=== PATIENT | male | born 1985 | race Caucasian/White ===

== ENCOUNTER 2017-03-14 06:36 | Observation (INO) | payer SELFPAY ==
[~2017-03-14 06:36] MED LIST: ALLOPURINOL300 M1 PO; FENOFIBRATE; FISH OIL; LEXAPRO10 M2 PO; LIPITOR20 M1 PO; LOVAZA1 GM/CAP PO; PRINIVIL20 M1 PO; TRICOR145 M2 PO
[2017-03-14 07:41] LABS: BASO % 0.5 % (0-2); EOS % 0.7 % (0-7); HCT-HEMATOCRIT 48.8 % (36.0-53.5); HGB-HEMOGLOBIN 17.2 gm/dl (13.5-17.0); LYMPH % 31.1 % (20-45); LYMPH ABSOLUTE COUNT 1.3 tho/cmm (0.8-4.5); MCH (MEAN CORPUSCULAR HGB) 32.3 pg (28.0-32.0); MCHC MEAN CORPUSCULAR HGB CONC 35.2 % (32.0-36.0); MCV (MEAN CELL VOLUME) 91.6 fl (82.0-96.0); MEAN PLATELET VOLUME 12.6 cmc (9.4-12.4); MONO % 8.7 % (0-12); MONOCYTE ABSOLUTE COUNT 0.4 tho/cmm (0.0-1.2); NEUTROPHIL ABSOLUTE COUNT 2.5 tho/cmm (1.6-8.0); NEUTROPHIL-AUTOMATED 2.5 tho/cmm (1.6-8.0); PLATELET COUNT 92 tho/cmm (150-450); RED BLOOD COUNT 5.33 mil/cmm (4.40-5.70); RED CELL DISTRIBUTION WIDTH 11.6 % (12.4-16.4); WHITE BLOOD COUNT 4.3 tho/cmm (4.0-10.0)
[2017-03-14 07:56] LABS: ALB/GLOB RATIO 0.9 (0.8-2.0); ALCOHOL (ETOH) <10 mg/dl (<10); ALKALINE PHOSPHATASE 107 U/L (33-138); BILIRUBIN,TOTAL 1.2 mg/dl (0.0-1.5); BLOOD UREA NITROGEN 5 mg/dl (6-24); CALCIUM 8.7 mg/dl (8.5-10.5); CARBON DIOXIDE-VENOUS 18 mmol/L (22-32); CHLORIDE 99 mmol/l (96-110); CREATININE 0.86 mg/dl (0.60-1.30); GLUCOSE 127 mg/dL (70-110); LIPASE 168 U/L (73-393); SODIUM 135 mmol/L (135-145); eGFR VALUE FOR BLACK >90 mL/Min
[2017-03-14 08:00] LABS: ALBUMIN 3.5 g/dl (3.5-5.0); ANION GAP 22 mmol/L (0-20)
[2017-03-14 08:01] LABS: ALT/SGPT 128 U/L (12-78); AST/SGOT 193 U/L (10-40); POTASSIUM 3.5 mmol/L (3.7-5.1)
[2017-03-14 08:09] LABS: PROTHROMBIN TIME 11.4 SECONDS (9.0-13.6)
[2017-03-14 13:47] LABS: URINE BILIRUBIN NEGATIVE (NEG); URINE BLOOD NEGATIVE (NEG); URINE GLUCOSE (UA) NEGATIVE (NEG); URINE KETONE NEGATIVE (NEG); URINE LEUKOCYTE ESTERASE NEGATIVE (NEG); URINE NITRITE NEGATIVE (NEG); URINE PH 6.5 (5.0-8.0); URINE PROTEIN NEGATIVE (NEG)
[2017-03-14 13:53] LABS: URINE APPEARANCE CLEAR; URINE COLOR YELLOW
[2017-03-15 06:14] LABS: BASO % 0.6 % (0-2); EOS % 3.2 % (0-7); EOSINOPHIL ABSOLUTE COUNT 0.1 tho/cmm (0.0-0.7); HCT-HEMATOCRIT 48.7 % (36.0-53.5); HGB-HEMOGLOBIN 16.1 gm/dl (13.5-17.0); LYMPH % 43.4 % (20-45); LYMPH ABSOLUTE COUNT 1.5 tho/cmm (0.8-4.5); MCH (MEAN CORPUSCULAR HGB) 31.6 pg (28.0-32.0); MCV (MEAN CELL VOLUME) 95.7 fl (82.0-96.0); MEAN PLATELET VOLUME 12.6 cmc (9.4-12.4); MONOCYTE ABSOLUTE COUNT 0.4 tho/cmm (0.0-1.2); NEUTROPHIL ABSOLUTE COUNT 1.4 tho/cmm (1.6-8.0); NEUTROPHIL-AUTOMATED 1.4 tho/cmm (1.6-8.0); NEUTROPHILS % 40.8 % (40-80); PLATELET COUNT 67 tho/cmm (150-450); RED BLOOD COUNT 5.09 mil/cmm (4.40-5.70); RED CELL DISTRIBUTION WIDTH 11.9 % (12.4-16.4); WHITE BLOOD COUNT 3.4 tho/cmm (4.0-10.0)
[2017-03-15 06:25] LABS: MCHC MEAN CORPUSCULAR HGB CONC 33.1 % (32.0-36.0)
[2017-03-15 06:37] LABS: ALB/GLOB RATIO 0.8 (0.8-2.0); ALBUMIN 2.9 g/dl (3.5-5.0); ALKALINE PHOSPHATASE 86 U/L (33-138); ALT/SGPT 115 U/L (12-78); AMYLASE 34 U/L (20-90); BILIRUBIN,DIRECT 0.3 mg/dl (0.0-0.3); BILIRUBIN,INDIRECT 0.3 mg/dL (0.0-1.0); BILIRUBIN,TOTAL 0.6 mg/dl (0.0-1.5); BLOOD UREA NITROGEN 5 mg/dl (6-24); CALCIUM 8.5 mg/dl (8.5-10.5); CARBON DIOXIDE-VENOUS 26 mmol/L (22-32); CHLORIDE 105 mmol/l (96-110); CREATININE 1.06 mg/dl (0.60-1.30); GLUCOSE 96 mg/dL (70-110); LIPASE 205 U/L (73-393); SODIUM 141 mmol/L (135-145); eGFR VALUE FOR BLACK >90 mL/Min
[2017-03-15 06:38] LABS: ANION GAP 14 mmol/L (0-20); AST/SGOT 173 U/L (10-40)
[2017-03-15 06:39] LABS: MAGNESIUM 2.3 mg/dl (1.8-2.6)
[2017-03-15] MEDS ORDERED: PROTONIX40 M2 PO (11:35)
[2017-03-15] MEDS ORDERED: ATIVAN1 M2 PO (11:35)
[2017-03-15] MEDS ORDERED: FOLIC ACID1 M1 PO (11:36)
[2017-03-15] MEDS ORDERED: ZYLOPRIM100 M1 PO (11:38)
[2017-03-15] MEDS ORDERED: THIAMINE HCL100 M2 PO (11:38)
[2017-03-15] MEDS ORDERED: MULTIVITAMINS1 EAC6 PO (11:39)
== END 2017-03-15 12:07 ==
LOC: EDMED 06:36 → EMR2 10:31 → CAR1 17:35
PROVIDERS: Emergency Medicine; Nurse Practitioner; ADMIT Internal Medicine
DX: F10.239 Alcohol dependence with withdrawal, unspecified (principal); R79.89 Other specified abnormal findings of blood chemistry; D69.6 Thrombocytopenia, unspecified; I10 Essential (primary) hypertension; F32.9 Major depressive disorder, single episode, unspecified; E87.6 Hypokalemia; E86.0 Dehydration; E78.5 Hyperlipidemia, unspecified; M10.9 Gout, unspecified; R07.81 Pleurodynia; F17.220 Nicotine dependence, chewing tobacco, uncomplicated; Z79.899 Other long term (current) drug therapy; Z98.890 Other specified postprocedural states; W17.89XA Other fall from one level to another, initial encounter
CPT/HCPCS: G0378; G0480; J2060; J3411; J7030